=== PATIENT | male | born 2000 | race Two or more races ===

== ENCOUNTER 2022-12-12 20:12 | Emergency (ER) | payer MEDICAID ==
[~2022-12-12] VITALS: Ht 182.9 cm; Wt 75.0 kg
[2022-12-12] MEDS ORDERED: IBUP600T27 PO (23:10)
[2022-12-12] MEDS ORDERED: KETOROLAC TROMETH 30 MG/ML 1ML VIAL IM ONE (23:15)
[2022-12-13] VITALS: BP 126/84
== END 2022-12-13 | disposition home or self-care (01) ==
LOC: ER 20:12
DX: S43.101A Unspecified dislocation of right acromioclavicular joint, initial encounter (principal); V00.311A Fall from snowboard, initial encounter; Y93.23 Activity, snow (alpine) (downhill) skiing, snowboarding, sledding, tobogganing and snow tubing; Y92.89 Other specified places as the place of occurrence of the external cause; Y99.8 Other external cause status
CPT/HCPCS: 73030; 96372; 99283; J1885